=== PATIENT | male | born 1975 | race African-American/Black ===

== ENCOUNTER 2022-07-25 09:17 | Day surgery (SDC) | payer OTHER, SELFPAY ==
--- NOTE | 2022-07-24 17:26 | W.ANESPRE ---
General Info Date of Service Date Performed: 07/25/22 Height: 5 ft 8 in Weight: 98.543 kg Body Mass Index (BMI): 33.0 Surgical Procedure: Operation Date: 07/25/22 09:50 Proposed Procedure Side Surgeon p Chrissy West MD Meds Allergies and Home Medications Allergies Allergy/AdvReac Type Severity Reaction Status Date / Time No Known Allergies Allergy Verified 07/14/22 12:53 Home Medication Medication Instructions Recorded cetirizine 10 mg tablet (All Day 10 mg PO DAILY PRN 01/12/22 Allergy (cetirizine)) ergocalciferol (vitamin D2) 1,250 1,250 mcg PO QWEEK PRN 01/12/22 mcg (50,000 unit) capsule ibuprofen 600 mg tablet 600 mg PO TID PRN 01/12/22 meloxicam 15 mg tablet 7.5 mg PO DAILY 01/12/22 hydrochlorothiazide 12.5 mg capsule mg 07/25/22 Current Visit Medications: Current Medications Generic Name Dose Route Start Last Admin Trade Name Juanq PRN Reason Stop Dose Admin Ringer's Solution 1,000 mls @ 80 mls/hr 07/25/22 06:00 IV 08/21/22 23:59 INFUSION CHONG IV Miscellaneous Supplies 1 each 07/25/22 06:00 Iv Access IV 08/21/22 23:59 DIRECTED CHONG Sodium Chloride 0 ml 07/25/22 06:00 Normal Saline Flush 10 Ml Syr IV 08/21/22 23:59 PRN PRN Sodium Chloride 0 ml 07/25/22 06:00 Normal Saline 10 Ml Vial IJ 08/21/22 23:59 DIRECTED PRN Sterile Water 0 ml 07/25/22 06:00 Water,Injection,Sterile 10 Ml Vial IJ 08/21/22 23:59 DIRECTED PRN PFSH Active Problems Active Problems: Problem Status Onset Code Family history of colon cancer Z80.0 Vitamin D deficiency E55.9 KEYONNA (obstructive sleep apnea) G47.33 Essential hypertension I10 Cervicalgia M54.2 Anxiety F41.9 Screening for colon cancer Z12.11 Alcohol Alcohol Intake: current Alcohol intake frequency: a few times a week Alcohol type: hard liquor Vital Signs and Lab Results Vital Signs Most Recent Vital Signs in EMR: Temp Pulse Resp BP Pulse Ox 36.5 C 65 16 135/100 H 99 07/25/22 09:46 03/20/23 09:46 07/25/22 09:46 07/25/22 09:46 07/25/22 09:46 Lab Results Blood Type / Crossmatch: No Data to Display Complete Blood Count: No Data to Display Complete Metabolic Panel: No Data to Display Liver Function Panel: No Data to Display Coagulation Panel: No Data to Display Cardiac Panel: No Data to Display Arterial Blood Gas: No Data to Display Venous Blood Gas: No Data to Display Pancreas Panel: No Data to Display Thyroid Panel: No Data to Display Infectious Disease: No Data to Display Blood Cultures: No Data to Display Toxicology Panel: No Data to Display Anesthesia Assessment and Plan Anesthesia History Personal History: No History of Anesthesia Complications Family History: No Family History of Anesthesia Complications Exercise Tolerance Exercise Tolerance: Metabolic Equivalents>4 Cardiac & Pulmonary Exam Cardiac Exam: Normal S1/S2 Heart Sounds Pulmonary Exam: Clear Bilateral Breath Sounds Implantable Cardiac Device Does patient have a Pacemaker or an ICD?: No Airway Exam Known Difficult Airway: No Mallampati Class: 3 Mouth Opening: Normal (> 3cm) Thyromental Distance: Greater than 3 cm Neck Range of Motion: Limited ROM Neck Circumference: Normal Teeth Condition: Normal Dentition ASA Classification ASA Score: ASA 2 Emergency Case?: No NPO Status NPO Status: NPO Clears >2 hours, Solids >8 hours Anesthesia Plan Resuscitation Status: Full Code Anesthesia Technique: General Anesthesia Airway Planned: Natural Airway Monitors Used: Standard Monitors Preoperative Comments:: 47 yo male for screening colonoscopy. Sig PMHx: KEYONNA, HTN (HCTZ), anxiety, neck pain, occ EtOH, non-smoker.
--- NOTE | 2022-07-24 20:21 | W.PM.DSUDISC ---
Date of service: 07/25/22 Time of Service: 11:48 Discharge Plan Disposition Patient Disposition: Home Condition: Good Discharge Details Reason For Visit: Screening colonoscopy Attending Provider: Dipak West Primary Care Provider: [place],Local Home Meds and New Rx's Prescriptions: Continued ibuprofen 600 mg tablet 600 mg PO TID PRN cetirizine [All Day Allergy (cetirizine)] 10 mg tablet 10 mg PO DAILY PRN ergocalciferol (vitamin D2) 1,250 mcg (50,000 unit) capsule 1,250 mcg PO QWEEK PRN meloxicam 15 mg tablet 7.5 mg PO DAILY hydrochlorothiazide 12.5 mg Capsule Discontinued bisacodyl [Dulcolax (bisacodyl)] 5 mg tablet,delayed release (DR/EC) 5 mg PO ONCE Qty: 4 0RF Rx Instructions: Take according to provider's instructions for colonoscopy prep. polyethylene glycol 3350 17 gram/dose powder 17 g PO ONCE Qty: 238 0RF Rx Instructions: To be taken as directed by prescriber's office for colonoscopy prep. Discharge Instructions Instructions: Diverticulosis (GEN), Diverticulosis Diet (GEN) Additional Instructions: Ervin, I was able to complete your colonoscopy today. The quality of your preparation was suboptimal, but I do feel confident in the results of the colonoscopy. I saw some mild diverticulosis, and I have attached some information here regarding general management of diverticular disease. A typical recommendation for a negative colonoscopy is to have another one in 10 years. However, because of the limitations of your prep, I would recommend repeating your next colonoscopy in 5 years. 1. If tolerated, consume a soft, low fiber diet for 1-2 days. 2[address] Do not drive, drink alcohol, operate machinery, make critical decisions, or do activities that require coordination or balance for 24 hours. 3. Because air was put into your colon during the procedure, expelling air from your rectum (passing gas or farting) is normal. 4. You may not have a bowel movement for 1-3 days because of the colonoscopy prep. This is normal. 5. Go directly to the emergency room if you notice any of the following: Develop chills (warm to touch), or if you have a thermometer and your temperature is above 101 Difficulty breathing or difficultly swallowing Persistent vomiting Severe abdominal pain, other than gas cramps Severe chest pain Black, tarry stools Any bleeding ? exceeding one tablespoon 6. Call your physician if the site where your intravenous was started becomes red, swollen, painful, and warm to touch. 7. Your physician has reviewed your pre-procedure medications. Please continue to take those medications as previously ordered. You will be given specific information/education regarding any changes to your medications before leaving. Activity:: Activity as Tolerated Diet:: As Tolerated Discharge Orders Discharge Orders: Discharge Order (Routine); Ordered 07/24/22 Ordered By: Dipak West DS: Diagnosis Discharge Diagnosis (1) Screening for colon cancer: Status: Acute Asessment and Plan: Negative colonoscopy today, but the quality of the preparation was suboptimal, and I recommend another colonoscopy in 5 years
--- NOTE | 2022-07-24 20:24 | W.COLOREPORT ---
Date of service: 07/25/22 Time of Service: 11:50 Colonoscopy Report Date of procedure: 07/25/22 Pre-op diagnosis general: Svreening colonoscopy Post-op diagnosis procedure note: other (Diverticulosis) Procedure: Colonoscopy Surgeon: Dipak West Anesthesia Type: General:No Airway Estimated blood loss (mL): 0 Pathology: none sent Complications: None Disposition: same day Indications: Ervin is a 47 year old male with 1 second degree relative with colon cancer who is here for his first screening colonoscopy Prep: Miralax/Dulcolax Procedure Start Time: 11:21 Procedure End Time: 11:42 Retraction Time: 16 Findings: Mild sigmoid diverticulosis Procedure Description: After the induction of monitored anesthetic care, and with the patient in left lateral decubitus position, I began by performing an external anorectal exam.? Perineum and skin were normal, as was the anal verge.? There was no evidence of external hemorrhoids.? Next, I performed a digital rectal exam.? I did not appreciate any abnormal findings.? Next, I advanced a colonoscope into the rectal vault.? I performed retroflexion.? This appeared normal.? Using insufflation, I then advanced the colonoscope beyond the rectal folds and into the sigmoid colon before advancing towards the cecum.? There was mild sigmoid diverticulosis. the quality of the prep was poor.? The scope was noted to be in the cecum by identification of the ileocecal valve and appendiceal orifice.? I then began withdrawing the colonoscope using repeated irrigation as necessary for full evaluation of the colonic mucosa. Because of the quality of the preparation, it took longer than expected to irrigate the colonic mucosa, and repeatedly suction nares clear. Once the scope was withdrawn to the level of the rectum, great care was taken to examine portions of the rectal folds.? Finally, the scope was withdrawn and the patient was brought to the same-day surgery recovery unit as the anesthetic wore off. ?The findings and instructions were shared with the patient prior to discharge. Based on the quality of the prep, I would recommend another colonoscopy in 5 years, with an extended preparation, and perhaps a different cleansing agent.
[2022-07-25 09:46] VITALS: BP 135/100; PULSE 65; RESP 16; TEMP 36.5; O2SAT 99
[2022-07-25] MEDS: Lactated Ringers 1,000 ML 80 ML IV (09:55)
[2022-07-25 10:30] VITALS: BMI 33.0
[2022-07-25 11:51] VITALS: BP 116/91; PULSE 90; RESP 14; TEMP 36.2; O2SAT 98
--- NOTE | 2022-07-25 12:17 | W.ANESPOSTOP ---
Postoperative Evaluation Date, Time and Location Date Performed: 07/25/22 Time Performed: 12:17 Patient Location: Day Surgery Unit Vital Signs Most Recent Imported Vital Signs: Most Recent Vital Signs Temp Pulse Resp BP Pulse Ox 36.2 C L 90 14 116/91 H 98 07/25/22 11:51 07/25/22 11:51 07/25/22 11:51 07/25/22 11:51 07/25/22 11:51 Pain Score Most Recent Pain Score: Most Recent Pain Score Pain Level 0 07/25/22 11:51 Assessment Mental Status: Awake (Alert & Oriented to Patient Baseline) Airway and Respiratory Function: Patent airway with normal (patient baseline) respiratory exam Cardiovascular Function: Hemodynamically Stable Hydration Status: Adequately Hydrated Nausea & Vomiting: No Nausea or Vomiting Pain: Pt. Denies Any Pain Peripheral Nerve Block: Patient did not receive a nerve block
[2022-07-25 12:24] VITALS: BP 142/97; PULSE 61; RESP 18; TEMP 36.2; O2SAT 99
== END 2022-07-25 12:43 | disposition home or self-care (01) ==
PROVIDERS: Visit Provider Surgery
PROC: 0DJD8ZZ Inspection of Lower Intestinal Tract, Via Natural or Artificial Opening Endoscopic (ICD-10-PCS; CPT 45378; principal; 2022-07-25 09:45)
DX: Z12.11 Encounter for screening for malignant neoplasm of colon (principal); Z80.0 Family history of malignant neoplasm of digestive organs
CPT/HCPCS: 45378